=== PATIENT | female | born 2005 | race Caucasian/White ===

== ENCOUNTER 2025-01-17 11:59 | Outpatient (CLI) | payer BC ==
[2025-01-17 13:01] LABS: #Basophils 0.04 10x3/uL (0.0-0.2); #Eosinophils 0.22 10x3/uL (0.0-0.7); #Monocytes 0.65 10x3/uL (0.11-0.59); #Neutrophils 6.99 10x3/uL (1.40-6.50); %Basophils 0.3 % (0.0-1.0); %Eosinophils 1.9 % (0.0-10.0); %Lymphocytes 31.5 % (21.0-51.0); %Monocytes 5.6 % (0.0-10.0); %Neutrophils 60.4 % (42.0-75.0); Hematocrit 40.5 % (36.0-47.0); Hemoglobin 13.2 g/dL (12.0-16.0); Mean Corpuscular Hemoglobin 28.9 pg (27.0-31.0); Mean Corpuscular Volume 88.8 fL (78.0-98.0); Platelet Count 364 10x3/uL (130-400); Red Blood Cell (RBC) Count 4.56 mill/uL (4.20-5.40); White Blood Cell (WBC) Count 11.59 10x3/uL (4.8-10.8)
[2025-01-17 13:07] LABS: BHCG - Serum Negative (NEGATIVE); Pregs Control Background? CLEAR/WHITE (CLR/WHITE); Pregs Control Bar Appear? YES (CONTROL BAR)
[2025-01-17 13:19] LABS: ALT (SGPT) 24 U/L (Less than 34); AST (SGOT) 27 U/L (11-34); Albumin 3.8 g/dL (3.1-4.5); Alkaline Phosphatase 81 U/L (40-110); Anion Gap 16 mmol/L (10-20); BUN (Urea Nitrogen) 10 mg/dL (7.0-18.7); Bilirubin, Total 0.3 mg/dL (0.3-1.2); Calc. Creatinine Clearance 0 mL/min (70-130); Calcium 9.3 mg/dL (7.8-10.44); Carbon Dioxide 26 mmol/L (22-29); Chloride 104 mmol/L (98-107); Globulin 3.5 g/dL (2.4-3.5); Glucose 97 mg/dL (70-105); Potassium 4.3 mmol/L (3.5-5.1); Sodium 142 mmol/L (136-145)
== END 2025-01-17 12:00 | disposition home or self-care (01) ==
LOC: LABBT 11:59
PROVIDERS: ATTEND Surgery
DX: Z01.818 Encounter for other preprocedural examination (principal); E66.01 Morbid (severe) obesity due to excess calories
CPT/HCPCS: 80053; 83036; 84703; 85025; 93005; 93010

== ENCOUNTER 2025-01-25 05:34 | Inpatient (IN) | payer BC ==
[2025-01-25] MEDS ORDERED: Heparin 5,000 UNITS/ML VIAL ONE (06:04)
[2025-01-25] MEDS ORDERED: Acetaminophen 500 MG TAB ONE (06:04)
[2025-01-25] MEDS ORDERED: Bupivacaine 0.25% HCL 30 ML VIAL ONE (06:38)
[2025-01-25] MEDS ORDERED: fentaNYL PF 100 MCG/2 ML SYRINGE ONE ×3 (06:56→08:55)
[2025-01-25] MEDS ORDERED: Sevoflurane 250 ML INH ANEST BOTTLE ONE (06:59)
[2025-01-25] MEDS ORDERED: Lidocaine 1% PF 5 ML VIAL ONE (07:02)
[2025-01-25] MEDS ORDERED: Rocuronium Bromide 10 MG/ML (10ML VIAL) ONE (07:35)
[2025-01-25] MEDS ORDERED: Ondansetron PF 4 MG/2 ML Vial ONE (08:16)
[2025-01-25] MEDS ORDERED: SUGAMMADEX SODIUM 200 MG/2 ML VIAL ONE (08:17)
[2025-01-25] MEDS ORDERED: HYDROmorphone 0.5 MG/0.5 ML SYRINGE ONE (08:55)
[2025-01-25] MEDS ORDERED: D5 1/2 NS w/20 mEq KCL 1,000 ML ONE (08:59)
[2025-01-25] MEDS: D5 1/2 NS w/20 mEq KCL 1,000 ML IV SCH (10:30)
[2025-01-25] MEDS ORDERED: Glucagon 1 MG/ML KIT IM PRN (10:35)
[2025-01-25] MEDS ORDERED: Dextrose 50% Abboject 50 ML SYRINGE SLOW IVP PRN (10:35)
[2025-01-25] MEDS ORDERED: hydrALAZINE 20 MG/ML VIAL SLOW IVP PRN (10:35)
[2025-01-25] MEDS ORDERED: diphenhydrAMINE 50 MG/ML VIAL IVP PRN (10:35)
[2025-01-25 11:23] VITALS: BMI 56.2
[2025-01-25] MEDS: Enoxaparin 60 MG (0.6 mL) SYRINGE SC SCH ×2 (12:06→22:06)
[2025-01-25] MEDS: Pantoprazole 40 MG VIAL IVP SCH (12:07)
[2025-01-25] MEDS: oxyCODONE 5 MG TAB PO PRN (18:59)
[2025-01-25] MEDS: Ondansetron PF 4 MG/2 ML Vial IVP PRN (23:25)
[2025-01-26 05:39] LABS: #Basophils Less than 0.03 10x3/uL (0.0-0.2); #Eosinophils Less than 0.03 10x3/uL (0.0-0.7); #Monocytes 1.13 10x3/uL (0.11-0.59); #Neutrophils 15.96 10x3/uL (1.40-6.50); %Basophils 0.1 % (0.0-1.0); %Eosinophils 0.0 % (0.0-10.0); %Lymphocytes 11.6 % (21.0-51.0); %Monocytes 5.8 % (0.0-10.0); %Neutrophils 81.8 % (42.0-75.0); Hematocrit 38.6 % (36.0-47.0); Hemoglobin 12.7 g/dL (12.0-16.0); Mean Corpuscular Hemoglobin 28.8 pg (27.0-31.0); Mean Corpuscular Volume 87.5 fL (78.0-98.0); Platelet Count 363 10x3/uL (130-400); Red Blood Cell (RBC) Count 4.41 mill/uL (4.20-5.40); White Blood Cell (WBC) Count 19.51 10x3/uL (4.8-10.8)
[2025-01-26 05:40] LABS: Anion Gap 14 mmol/L (10-20); BUN (Urea Nitrogen) 7 mg/dL (7.0-18.7); Calc. Creatinine Clearance 333 mL/min (70-130); Calcium 9.0 mg/dL (7.8-10.44); Carbon Dioxide 19 mmol/L (22-29); Chloride 109 mmol/L (98-107); Glucose 126 mg/dL (70-105); Potassium 4.5 mmol/L (3.5-5.1); Sodium 137 mmol/L (136-145)
[2025-01-26 09:24] VITALS: BP 146/91; TEMP 98.3
[2025-01-26] MEDS: Pantoprazole 40 MG VIAL IVP SCH (09:30)
== END 2025-01-26 13:13 | disposition home or self-care (01) | DRG 621 ==
LOC: SDC 05:34 → SURG B 09:57
PROVIDERS: ADMIT Surgery; ATTEND Surgery
PROC: 0DB64Z3 Excision of Stomach, Percutaneous Endoscopic Approach, Vertical (ICD-10-PCS; principal; 2025-01-25)
PROC: 8E0W4CZ Robotic Assisted Procedure of Trunk Region, Percutaneous Endoscopic Approach (ICD-10-PCS; 2025-01-25)
DX: E66.01 Morbid (severe) obesity due to excess calories (principal); Z68.43 Body mass index [BMI] 50.0-59.9, adult
CPT/HCPCS: 36415; 36416; 80048; 85025; 88307; 94760; J0169; J0665; J1100; J1171; J1644; J1650; J2405; J2470; J2550; J2704; J3480; S2900